=== PATIENT | female | born 1985 | race Caucasian/White ===

== ENCOUNTER 2022-04-19 15:52 | Emergency (ER) | payer BC, MEDICAID, SELFPAY ==
[2022-04-19 16:18] VITALS: BP 143/93; RESP 18; TEMP 37.3; O2SAT 98; BMI 37.4
--- NOTE | 2022-04-19 16:25 | ED.GENADULT ---
HPI - General Adult General Time Seen by Provider: 16:26 Date Seen: 04/19/22 Chief complaint: Skin/Abscess/Foreign Body Stated complaint: Genital Cyst Time Seen by Provider: 04/19/22 16:25 History of Present Illness HPI narrative: Miriam is a 36 year old old 2, para 2-0-0-2, vulvar abscess, bartholins cyst, tubal ligation presents to the ED via private car with genital cyst. patient noticed that the pain started last Sunday, the cyst is not draining, she had one 3-4 years ago and had it drained in the ED. Patient denies any fevers or chills, pain is only on palpation, no history of any MRSA. Related Data Previous Rx's Medication Instructions Recorded doxycycline monohydrate 100 mg 100 mg PO BID 7 days #14 caps 04/19/22 capsule Allergies Allergy/AdvReac Type Severity Reaction Status Date / Time erythromycin base Allergy Verified 04/19/22 16:18 Penicillins Allergy Verified 04/19/22 16:18 Sulfa (Sulfonamide Allergy Verified 04/19/22 16:18 Antibiotics) Review of Systems Status of ROS: Reports: 10 or more systems reviewed and unremarkable except as noted in History and below PFSH PFSH Social History Smoking Status: Current every day smoker Do you use any of these nicotine containing products: Vaping Products Second hand tobacco smoke exposure: No How often do you have a drink containing alcohol: monthly or less How many standard drinks containing alcohol do you have on a typical day: 1 or 2 How often do you have six or more drinks on one occasion: Never AUDIT-C Alcohol total score: 1 Non-prescribed substance use: denies use service: No Exam Narrative: Exam Narrative: General: No obvious distress HEENT: Pupils equal round reactive to light, extraocular muscles intact Heart: Normal sinus rhythm S1-S2 Lungs: Clear to auscultation bilaterally Abdomen: Soft nontender Genitourinary: large proximal left thigh, 3 x 3 cm abscess noted, surrounding erythema, fluctuance and induration. tender to palpation. Const: Vital Signs, click to edit/add: Vital Signs - 24 hr 04/19/22 16:18 Temperature 99.1 F Respiratory Rate 18 Blood Pressure [Le ft Upper Arm] 143/93 H Pulse Oximetry 98 Oxygen Delivery Me thod Room Air Course Course Hospital Course: 4:30 PM: AIDET performed. vitals normal. Workup will include incision and drainage, please see procedure note. Reevaluation(s) Reevaluation #1: Incision and drainage performed, patient tolerated procedure well, wound culture sent, plan to discharge, covered with doxycycline 100 mg twice daily over the next 7 days, she should follow up with her primary care provider over the next 7-10 days, return precautions given. Time: 17:10 Vital Signs Vital signs: Initial Vital Signs Temperature 99.1 F 04/19/22 16:18 Temperature Source Temporal Artery Scan 04/19/22 16:18 Pulse Rhythm 04/19/22 16:18 Respiratory Rate 18 04/19/22 16:18 Blood Pressure 143/93 H 04/19/22 16:18 Blood Pressure Mean 109 04/19/22 16:18 Blood Pressure Position Supine 04/19/22 16:18 Pulse Oximetry 98 04/19/22 16:18 Oxygen Delivery Method 04/19/22 16:18 Vital Signs Temperature 99.1 F 04/19/22 16:18 Respiratory Rate 18 04/19/22 16:18 Blood Pressure 143/93 H 04/19/22 16:18 Pulse Oximetry 98 04/19/22 16:18 Oxygen Delivery Method 04/19/22 16:18 Temperature 99.1 F 04/19/22 16:18 Respiratory Rate 18 04/19/22 16:18 Blood Pressure 143/93 H 04/19/22 16:18 Pulse Oximetry 98 04/19/22 16:18 Oxygen Delivery Method 04/19/22 16:18 Discharge Plan Discharge Clinical Impression: Abscess of left thigh Patient Disposition: Home, Self-Care Condition: Improved Instructions: Abscess (ED) Additional Instructions: Soap and water to clean the area, doxycycline 100 mg twice daily over the next 7 days, follow-up with a primary care provider over the next 7-10 days for ER followup and recheck. Activity Level: No Restrictions Prescriptions: New doxycycline monohydrate 100 mg capsule 100 mg PO BID 7 Days Qty: 14 0RF Follow Up/Referrals: Mani Estrella MD [Primary Care Provider] - Stand Alone Forms: [employer] Info Instructions Procedures I/D Type: abscess Site: lower extremity Pre procedure diagnosis: upper leg abscess Post procedure diagnosis: same Written consent by: patient Site marking: site marked Verification/time out: correct patient Name of person performing procedure: Nnamdi E Rybar Anesthesia I&D: lidocaine 1% and with Epi Amount of anesthesia used (mls): 5 Side (if applicable): left Technique: incised with #11 blade Amount of fluid expressed (mL): 20 Irrigation: No Packing used?: none Estimated blood loss (if any): less than 5mls Complications: pain and bleeding Conclusion: patient tolerated procedure
[2022-04-19] MEDS: LIDOCAINE 2%-EPI 1:200,000 20 ML INFILTRATI (17:28)
== END 2022-04-19 17:51 | disposition home or self-care (01) ==
PROVIDERS: Emergency Provider Student in an Organized Health Care Education/Training Program; PCP Family Medicine
DX: L02.416 Cutaneous abscess of left lower limb (principal)
CPT/HCPCS: 10060; 87070; 99283; 99284

== ENCOUNTER 2023-03-23 08:54 | Day surgery (SDC) | payer MEDICAID, SELFPAY ==
[2023-03-23] VITALS (20 sets, daily range): BP systolic 105–164; BP diastolic 67–109; PULSE 65–108; RESP 12–20; TEMP 36.2–37.5; O2SAT 88–98; BMI 37.4; BMI 42.9
--- NOTE | 2023-03-23 09:23 | CRLHL7_ITS ---
For Patients: As a result of the Century Cures Act, medical imaging exams and procedure reports are released immediately into your electronic medical record. You may view this report before your referring provider. If you have questions, please contact your health care provider. INDICATION: Right lower quadrant pain for 2 days COMPARISON: 06/04/2019 TECHNIQUE: CT of the abdomen and pelvis after the administration of intravenous contrast. Multiplanar axial, coronal, and sagittal reformats were reconstructed. Contrast: 98 mL Isovue 370 intravenously. Oral contrast was not administered. FINDINGS: Lung bases: Normal. Liver: Hepatic steatosis. No focal masses. Patent vasculature. Gallbladder and biliary tree: Normal gallbladder. No biliary duct dilation. Pancreas: Normal. Spleen: Normal. Normal size. Adrenal glands: Normal. No nodules. Kidneys and bladder: Normal size and position. No cyst or mass. Punctate nonobstructing calculus in the right lower pole. No left renal calculi. No urinary tract dilation. The urinary bladder is normal. GI: The appendix is dilated. The wall is thickened hyper enhancing. No calcified appendicolith. There is a moderate adjacent inflammatory change. No adjacent fluid collection, phlegmon, or abscess. The appendix is located inferior to the cecum in the anterior-inferior right lower quadrant. The remainder of the bowel has a normal appearance. Vessels: Aorta and major branches, including the mesenteric vessels: Patent. Normal caliber. No atherosclerotic plaques. IVC and tributaries: Normal. Mesenteric and portal veins: Normal. Peritoneum: No free fluid. Lymph nodes: No adenopathy. Pelvis: Physiologic appearance of the reproductive organs. Bones: No fractures. No focal bone lesions. L5-S1 disc degeneration.. IMPRESSION: Acute appendicitis. No perforation or abscess. Please note that all CT scans at this facility use dose modulation, iterative reconstruction, and/or weight-based dosing when appropriate to reduce radiation dose to as low as reasonably achievable. Dictated by Kyleigh Hernandez MD @ 03/23/2023 10:17:37 AM (Electronically Signed)
[2023-03-23 09:31] LABS: Appearance Urine Cloudy (Clear); Bilirubin Urine Negative (Negative); Blood Urine Trace-lysed (Negative); Color Urine Yellow (Yellow); Glucose Urine Negative (Negative); Ketones Urine Negative (Negative); Leukocyte Esterase Urine Negative (Negative); Nitrite Urine Negative (Negative); Protein Urine Trace (Negative); Specific Gravity Urine 1.025 (1.000-1.030); Urobilinogen Urine 0.2 (0.2-1.0)
[2023-03-23 09:39] LABS: Lactate* 0.8 mmol/L (0.5-1.9)
[2023-03-23 09:43] LABS: Amorphous Sediment Urine Moderate; Bacteria Urine Few; Squamous Epithelial Cell Urine Many (None-Few)
[2023-03-23 09:52] LABS: Basophils Percent Auto 0.1 % (0.0-3.0); Eosinophils Percent Auto 0.2 % (0.0-7.0); Hematocrit 41.6 % (33.0-51.0); Hemoglobin* 13.5 gm/dL (12.0-16.0); Immature Granulocytes Pct Auto 0.1 %; Lymphocytes Percent Auto 15.9 % (20-44); Mean Corpuscular HGB Conc 33 gm/dL (32-36); Mean Corpuscular Hemoglobin 30 pg (26-34); Mean Corpuscular Volume 91 fL (80-100); Monocytes Percent Auto 8.9 % (0.0-11.0); Neutrophils Percent Auto 74.8 % (42.0-72.0); Platelet Count* 244 K/uL (140-440); RDW Coefficient of Variation % 12.8 % (11.5-15.5); Red Blood Count 4.58 m/uL (4.00-5.20); White Blood Count* 13.69 K/uL (4.50-11.00)
--- NOTE | 2023-03-23 09:52 | ED_ITS ---
HPI - Abdominal Pain General Date Seen: 03/23/23 Chief Complaint: Flank Pain Stated Complaint: side pain Time Seen by Provider: 03/23/23 08:57 Source: patient Mode of arrival: ambulatory Limitations: no limitations History of Present Illness HPI narrative: Patient is a 37-year-old female who presents here with right lower quadrant pain, the pain is been present for approximately 2-3 days, initially was in the periumbilical region, but is localized in the right lower quadrant. She notes that there is no pain that goes through to her back, she feels slightly nauseated, but has not vomited, denies any dysuria frequency or vaginal discharge. She has no previous history of appendicitis, she has a history of a previous kidney stone she is unsure which side it was on. She has a history of a tubal ligation in a previous she is a 1. Denies any intercourse within the last year. Denies fevers chills, appetite has been decreased, she says it hurts to walk, with localization of pain in the right lower quadrant. Bowel movements have been normal. Taking some Tylenol for the discomfort but really no other history. She tells me her child had appendicitis and was seen at [facility] approximately 7-10 days ago. Last normal menstrual period was 21 days ago. Related Data Home Medications Medication Instructions Recorded Confirmed No Known Home Medications 03/23/23 03/23/23 Allergies Allergy/AdvReac Type Severity Reaction Status Date / Time erythromycin base Allergy Hives Verified 03/23/23 10:05 Penicillins Allergy Hives Verified 03/23/23 10:05 Sulfa (Sulfonamide Allergy Hives Verified 03/23/23 10:05 Antibiotics) Review of Systems Status of ROS Reports: 10 or more systems reviewed and unremarkable except as noted in History and below [facility] Social History Smoking Status: Current every day smoker Do you use any of these nicotine containing products: Vaping Products Second hand tobacco smoke exposure: No How often do you have a drink containing alcohol: monthly or less How many standard drinks containing alcohol do you have on a typical day: 1 or 2 How often do you have six or more drinks on one occasion: Never AUDIT-C Alcohol total score: 1 Non-prescribed substance use: denies use service: No Exam Narrative: Exam Narrative: On examination she is seen in room 1 she is in no apparent distress, her pupils equal round reactive to light, there is no scleral icterus or redness, bad dentition is noted, tells me this is lack of calcium. There is no lymphadenopathy anterior posterior chains, her chest is good clear air entry bilaterally there is no wheezing crackles noted, heart sounds are normal her abdomen is slightly obese. Tenderness is noted in the right lower quadrant, absence of peritoneal signs, bowel sounds are quiet, no right upper quadrant tenderness negative Kwok sign, no CVA tenderness, skin reveals no petechiae rashes she moves all extremities independently well, neurologically intact in her upper lower extremities with normal muscle bulk. Const: Vital Signs, click to edit/add: Vital Signs - 24 hr 03/23/23 09:01 Temperature 98.3 F Pulse Rate [Pulse Oximeter] 108 H Respiratory Rate 18 Blood Pressure [Ri ght Upper Arm] 142/109 H Pulse Oximetry 98 Oxygen Delivery Me thod Room Air Documenting provider has reviewed patient's vital signs: yes Course Course ED Course: During the evaluation of this patient I considered multiple differential diagnosis including life-threatening differentials which are appendicitis, aortic aneurysm, mesenteric ischemia, bowel perforation, ectopic , volvulus and bowel obstruction, other differential diagnosis include but are not limited to inflammatory bowel disease, cholecystitis, pancreatitis, hepatitis, gastritis, GERD, diverticulitis, peptic ulcer disease, pyelonephritis/UTI, renal colic/stone, pelvic inflammatory disease, cervicitis, endometritis, intrauterine , dysfunctional uterine bleeding, ovarian cyst/torsion, spontaneous as well as other etiologies Reevaluation(s) Time of Reevaluation #1: 10:41 Reevaluation #1: Discussed with the patient the CT showed acute appendicitis without perforation. I discussed with her that I contacted from General surgery. She will see her, and take her to the operating room is that is how we deal with this situation. She will be kept NPO, I asked her if she wanted more pain medication she declined. She is fit for surgery ASA 1 Consultations Consultation #1: Dr. Janeen Thomas Time: 10:00 Vital Signs Vital signs: Initial Vital Signs Temperature 98.3 F 03/23/23 09:01 Temperature Source Temporal Artery Scan 03/23/23 09:01 Pulse Rate 108 H 03/23/23 09:01 Respiratory Rate 18 03/23/23 09:01 Blood Pressure 142/109 H 03/23/23 09:01 Blood Pressure Mean 120 H 03/23/23 09:01 Blood Pressure Position Sitting 03/23/23 09:01 Pulse Oximetry 98 03/23/23 09:01 Oxygen Delivery Method Room Air 03/23/23 09:01 Vital Signs Temperature 98.3 F 03/23/23 09:01 Pulse Rate 108 H 03/23/23 09:01 Respiratory Rate 18 03/23/23 09:01 Blood Pressure 142/109 H 03/23/23 09:01 Pulse Oximetry 98 03/23/23 09:01 Oxygen Delivery Method Room Air 03/23/23 09:01 Temperature 98.3 F 03/23/23 09:01 Pulse Rate 108 H 03/23/23 09:01 Respiratory Rate 18 03/23/23 09:01 Blood Pressure 142/109 H 03/23/23 09:01 Pulse Oximetry 98 03/23/23 09:01 Oxygen Delivery Method Room Air 03/23/23 09:01 MDM - Abdominal Pain Medical Records Attestation: I reviewed the patient's medical records. Lab Data Attestation: I reviewed the patient's lab results. Labs: Lab Results 03/23/23 03/23/23 Range/Units 09:20 09:35 WBC 13.69 H (4.50-11.00) K/uL RBC 4.58 (4.00-5.20) m/uL Hgb 13.5 (12.0-16.0) gm/dL Hct 41.6 (33.0-51.0) % MCV 91 (80-100) fL MCH 30 (26-34) pg MCHC 33 (32-36) gm/dL RDW Coeff of Jimmie 12.8 (11.5-15.5) % Plt Count 244 (140-440) K/uL Neut % (Auto) 74.8 H (42.0-72.0) % Lymph % (Auto) 15.9 L (20-44) % [place]entry % (Auto) 8.9 (0.0-11.0) % Eos % (Auto) 0.2 (0.0-7.0) % Baso % (Auto) 0.1 (0.0-3.0) % Neut # (Auto) 10.20 H (1.7-7.0) K/uL Lymph # (Auto) 2.20 (0.90-2.90) K/uL Gentry # (Auto) 1.20 H (0.00-0.90) K/UL Eos # (Auto) 0.00 (0.00-0.50) K/uL Baso # (Auto) 0.00 (0.00-0.30) K/uL Abs Immat Gran (auto) 0.00 (0.00-0.30) K/uL Imm/Tot Granulo (auto) 0.1 % Lactate 0.8 (0.5-1.9) mmol/L Urine Color Yellow (Yellow) Urine Appearance Cloudy A (Clear) Urine pH 6.0 (5.0-8.5) Ur Specific [place] 1.025 (1.000-1.030) Urine Protein Trace A (Negative) Urine Glucose (UA) Negative (Negative) Urine Ketones Negative (Negative) Urine Blood Trace-lysed A (Negative) Urine Nitrite Negative (Negative) Urine Bilirubin Negative (Negative) Urine Urobilinogen 0.2 (0.2-1.0) Ur Leukocyte Esterase Negative (Negative) Urine RBC 2-5 A (0-2) Urine WBC 2-5 (0-5) Ur Squamous Epith Cells Many A (None-Few) Amorphous Sediment Moderate A (None) Urine Bacteria Few A (None) Imaging Data CT scan - abdomen: Attestation: I have reviewed the pertinent imaging results. My impression: CT abdomen shows enlarged appendix at 15 mm, with appendix left, consistent with the almaz appendiceal stranding, with acute appendicitis without perforation Radiologist's impression: Patient: JOSETTE CERVANTES Facility:?[facility] Patient ID:?[id number] Site Patient ID:?[id number]. Site :?[id number] Study:?CT Abdomen/Pelvis w/ [facility] [id number]/2023 10:08:14 AM Ordering Physician:Kristi Cheatham Final Report: INDICATION: Right lower quadrant pain for 2 days COMPARISON: 06/04/2019 TECHNIQUE: CT of the abdomen and pelvis after the administration of intravenous contrast. Multiplanar axial, coronal, and sagittal reformats were reconstructed. Contrast: 98 mL Isovue 370 intravenously. Oral contrast was not administered. FINDINGS: Lung bases: Normal. Liver: Hepatic steatosis. No focal masses. Patent vasculature. Gallbladder and biliary tree: Normal gallbladder. No biliary duct dilation. Pancreas: Normal. Spleen: Normal. Normal size. Adrenal glands: Normal. No nodules. Kidneys and bladder: Normal size and position. No cyst or mass. Punctate nonobstructing calculus in the right lower pole. No left renal calculi. No urinary tract dilation. The urinary bladder is normal. GI: The appendix is dilated. The wall is thickened hyper enhancing. No calcified appendicolith. There is a moderate adjacent inflammatory change. No adjacent fluid collection, phlegmon, or abscess. The appendix is located inferior to the cecum in the anterior-inferior right lower quadrant. The remainder of the bowel has a normal appearance. Vessels: Aorta and major branches, including the mesenteric vessels: Patent. Normal caliber. No atherosclerotic plaques. IVC and tributaries: Normal. Mesenteric and portal veins: Normal. Peritoneum: No free fluid. Lymph nodes: No adenopathy. Pelvis: Physiologic appearance of the reproductive organs. Bones: No fractures. No focal bone lesions. L5-S1 disc degeneration.. IMPRESSION: Acute appendicitis. No perforation or abscess. Please note that all CT scans at this facility use dose modulation, iterative reconstruction, and/or weight-based dosing when appropriate to reduce radiation dose to as low as reasonably achievable. Dictated by Kyleigh Hernandez MD @ 03/23/2023 10:17:37 AM (Electronic Signature) Discharge Plan Discharge Clinical Impression: Acute appendicitis Patient Disposition: XFER to OR Condition: Improved Prescriptions: No Action No Known Home Medications Follow Up/Referrals: Mani Estrella MD [Primary Care Provider] -
[2023-03-23 09:55] LABS: Slide Review Reflex No
[2023-03-23] MEDS: ONDANSETRON 2 MG/ML inj 4 MG IVP (10:07)
[2023-03-23] MEDS: KETOROLAC 30 MG/ML inj IVP (10:07)
[2023-03-23] MEDS: 0.9 % SODIUM CHLORIDE 1000 ml 1,000 ML IV (10:07)
--- NOTE | 2023-03-23 10:19 | P.GSHP_ITS ---
History of Present Illness History of Present Illness Date Seen: 03/23/23 Chief complaint: side pain Narrative: The patient is a 37-year-old female who presents to the ER with right-sided abdominal pain. She states that she has had pain for couple of days. It started out diffuse and now it is located in her right lower quadrant. She has nausea but no vomiting. She last ate yesterday evening. She has a history of kidney stones. She has no pain with urination. No change in bowel habits since the pain began. The pain is worse with movement. PFSH PFSH Surgical History (Updated 03/23/23 @ 11:16 by Janeen Thomas MD) H/O tubal ligation ?Z98.51 - Tubal ligation status (ICD-10) S/P wrist surgery ?Z98.890 - Other specified postprocedural states (ICD-10) Social History (Updated 03/23/23 @ 11:19 by Janeen Thomas MD) Narrative: She vapes daily. Minimal alcohol use. She does not work outside the home Smoking Status: Current every day smoker Do you use any of these nicotine containing products: Vaping Products Second hand tobacco smoke exposure: No How often do you have a drink containing alcohol: monthly or less How many standard drinks containing alcohol do you have on a typical day: 1 or 2 How often do you have six or more drinks on one occasion: Never AUDIT-C Alcohol total score: 1 Non-prescribed substance use: denies use service: No Meds Home Medications and Allergies Home Medications Medication Instructions Recorded Confirmed Type No Known Home Medications 03/23/23 03/23/23 History Allergies Allergy/AdvReac Type Severity Reaction Status Date / Time erythromycin base Allergy Hives Verified 03/23/23 10:05 Penicillins Allergy Hives Verified 03/23/23 10:05 Sulfa (Sulfonamide Allergy Hives Verified 03/23/23 10:05 Antibiotics) Exam Narrative: Exam Narrative: General appearance: Alert, cooperative, and in no distress Eyes: PERRLA, eye lids clear, and sclera white HENT Head: Normocephalic Ears: External ears normal Pulmonary: Clear to auscultation bilaterally Cardiovascular Heart: Regular rate and rhythm Extremities: warm and well perfused Gastrointestinal Abdominal: Protuberant. No scars noted. Tender with guarding in the right lower quadrant. Musculoskeletal: Extremities: Upper: Both upper extremities have normal joint range of motion and inta ct strength. Lower: Both lower extremities have normal joint range of motion and intact strength. Skin: Normal skin color, texture, and turgor. Neurologic: No focal deficits Psychiatric: Alert, oriented, cooperative, normal affect. Const: Vital Signs, click to edit/add: Vital Signs - 24 hr 03/23/23 09:01 Temperature 98.3 F Pulse Rate [Pulse Oximeter] 108 H Respiratory Rate 18 Blood Pressure [Ri ght Upper Arm] 142/109 H Pulse Oximetry 98 Oxygen Delivery Me thod Room Air Results Results Labs: WBC [address] scan report/results: report reviewed and image reviewed Additional studies: CT abdomen done today IMPRESSION: Acute appendicitis. No perforation or abscess. Dictated by Kyleigh Hernandez MD @ 03/23/2023 10:17:37 AM Assessment and Plan Assessment and plan (1) Acute appendicitis: Status: Acute Plan We discussed that appendectomy is the preferred treatment for this. This can most often be done laparoscopically. We discussed risks and benefits of the procedure including but not limited to bleeding, need for conversion to open, risk of injury to other structures, need for possible bowel resection, and abscess formation. The patient understands that the risk of abscess is higher if the appendix is perforated. For that reason, we generally keep patient is in the hospital on IV antibiotics until vital signs and white blood cell count had normalized. We also discussed recovery including 2 weeks of lifting restrictions.
[2023-03-23 10:55] LABS: Chloride* 106 mmol/L (96-114); Potassium* 3.7 mmol/L (3.6-5.1); Sodium* 139 mmol/L (135-149)
[2023-03-23 10:58] LABS: Anion Gap 10 mEq/L (7-15); Blood Urea Nitrogen* 11 mg/dL (5-24); Carbon Dioxide* 23 mmol/L (20-32); Creatinine* 0.7 mg/dL (0.5-1.5); Est. Creatinine Clearance* 100.94; Estimated Glomerular Filt Rate 116 ml/min; Lipase* 59 U/L (23-300)
[2023-03-23 10:59] LABS: Calcium* 8.8 mg/dL (8.4-10.6); Glucose* 110 mg/dL (60-115)
[2023-03-23 11:01] LABS: C Reactive Protein* 5.9 mg/dL (0.5-1.0)
[2023-03-23 11:16] LABS: Procalcitonin* 0.06 ng/mL (<0.50)
[2023-03-23] MEDS: ERTAPENEM 1 GM inj IVPB (12:31)
[2023-03-23] MEDS: LACTATED RINGERS 1000 ML 1,000 ML 100 ML IV (12:38)
[2023-03-23] MEDS: BUPIVACAINE 0.25% 30 ML INJECTION (13:21)
--- NOTE | 2023-03-23 13:37 | PM.GSPRC ---
Operative Note Pre-op diagnosis: Acute appendicitis Post-op diagnosis: Acute gangrenous appendicitis with intraoperative perforation Type of Procedure: Laparoscopic appendectomy Indications: The patient is a 37-year-old female who presents with several days of abdominal workup revealed acute appendicitis. I recommended appendectomy as preferred method of treatment and she agreed to proceed. Procedure Description: After discussing the risks and benefits of the procedure, the patient signed informed consent.? The operative site was marked and the patient was brought to the operating room and placed on the operating table in supine position.? Care was taken to pad the patient's pressure points.?? The patient was then intubated by anesthesia.?? The operative site was then prepped and draped in the usual sterile fashion.? A time-out was then performed. Entrance to the abdomen was obtained via a 5 mm optical trocar in the left upper quadrant. The abdomen was insufflated and briefly surveyed for any signs of injury. There were none. A 12 mm port was placed superior to the umbilicus as well as a 5 mm port in the left lower quadrant. Both were done under direct vision. The patient was then placed in Trendelenburg position with the right side up. The small bowel was gently moved out of the way and the appendix was in view. A small amount of dissection was necessary to free the appendix from the surrounding pelvic attachments. The appendix was grasped and pulled into view. It did not appear overtly perforated, however it was gangrenous. It was grasped near the base where it was soft and normal appearing. A mesenteric window was created between the base of the appendix and the mesoappendix. An Endo-LLOYD purple load stapler was then used to transect the appendix at its base. There was a small amount of pus noted to be coming from the mid-appendix. This was controlled and did not spill into the abdomen. A vascular load stapler was then used to divide the mesoappendix. Two vascular loads were required to divide the mesoappendix. There was some bleeding from the staple line. This was controlled with clips. The appendix was then removed from the abdomen using an Endo-Catch bag and sent to pathology. The staple lines were inspected for bleeding. There was none. The 12 mm port site fascia was closed with 0 Vicryl using a Smith-Annabelle device. The abdomen was desufflated and the ports removed. The skin was then closed with absorbable subcuticular suture. Sterile dressings were then applied. Instrument sponge and needle counts were correct at the end of the case. The patient was then woken and transported to the PACU in stable condition. ? The patient tolerated the procedure well. Findings: Gangrenous appendix with intraoperative perforation, possibly from manipulation. Anesthesia: GETA Surgeon: Janeen Thomas MD Estimated blood loss (mL): 5 Specimen: Appendix Condition: stable Disposition: PACU Date of procedure: 03/23/23
--- NOTE | 2023-03-23 13:48 | P.ANES_ITS ---
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
[2023-03-23] MEDS: TRAMADOL HCL 50 MG TABLET PO ×2 (15:38→21:42)
[2023-03-23] MEDS: ACETAMINOPHEN 325 MG TABLET 650 MG PO (17:42)
--- NOTE | 2023-03-23 18:21 | PC.NURSE ---
End of Shift: Patient pleasant and cooperative. Patient vitally stable, lungs clear, BS WNL, IV SL. Patient rates pain at most 5-6/10, tylenol and 50mg of tramadol given. Patient tolerating regular diet and urinating 400cc. Abdominal lap sites x3 C/D/I.
== END 2023-03-23 22:10 | disposition home or self-care (01) ==
LOC: ED 10:44 → OR 11:10 → MEDSURG 12:11
PROVIDERS: Emergency Provider Family Medicine; PCP Family Medicine; Visit Provider Surgery
PROC: 0DTJ4ZZ Resection of Appendix, Percutaneous Endoscopic Approach (ICD-10-PCS; CPT 44970; principal; 2023-03-23 12:00)
DX: K35.32 Acute appendicitis with perforation, localized peritonitis, and gangrene, without abscess (principal)
CPT/HCPCS: 44970; 00840; 36415; 74177; 80048; 81001; 83605; 83690; 84145; 85025; 86140; 87086; 88304; 99140; 99284; 99285; A9270; J0330; J0665; J1100; J1170; J1335; J1885; J2250; J2405; J2704; J3010; J3490; J7030; J7120; Q9967